=== PATIENT | male | born 1970 | race Caucasian/White ===

== ENCOUNTER 2019-11-22 11:48 | Emergency (ER) | payer OTHER ==
[~2019-11-22] VITALS: Ht 177.8 cm; Wt 81.6 kg
[2019-11-22 11:57] VITALS: Ht 177.8 cm; Wt 81.6 kg
[2019-11-22 12:10] VITALS: BP 12/87
== END 2019-11-22 12:10 | disposition other institution (70) ==
LOC: ED 11:48
DX: Z02.89 Encounter for other administrative examinations (principal)